=== PATIENT | female | born 2000 | race Caucasian/White ===

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

== ENCOUNTER 2018-06-21 15:35 | Emergency (ER) | payer OTHER ==
[2018-06-21 15:48] VITALS: BP 109/66
--- NOTE | 2018-06-21 16:15 | UC ---
Throat Pain/Nasal Zac HPI - HPI Summary HPI Summary: started with hoarseness 4 days ago, next day has ST. ST persists, no fever or cough - History of Current Complaint Chief Complaint: UCGeneralIllness Stated Complaint: SORE THROAT Time Seen by Provider: 06/21/18 16:02 Hx Obtained From: Patient Hx Last Menstrual Period: currently ?: No Onset/Duration: Gradual Onset Severity: Mild Pain Intensity: 0 Cough: None Associated Signs & Symptoms: Positive: Hoarseness - Allergies/Home Medications Allergies/Adverse Reactions: Allergies Allergy/AdvReac Type Severity Reaction Status Date / Time No Known Allergies Allergy Verified 06/21/18 15:48 Home Medications: Home Medications Ibuprofen TAB* [Advil TAB*] 800 mg PO ONCE PRN 06/21/18 [History Confirmed 06/21] PMH/Surg Hx/FS Hx/Imm Hx Previously Healthy: Yes Respiratory History: Asthma - Surgical History Surgical History: None - Family History Known Family History: Positive: Unknown - Social History Occupation: Student Lives: With Family Alcohol Use: Rare Substance Use Type: None Smoking Status (MU): Never Smoked Tobacco Review of Systems All Other Systems Reviewed And Are Negative: Yes Constitutional: Positive: Negative Skin: Positive: Negative. Negative: Rash ENT: Positive: Sore Throat, Sinus Congestion. Negative: Ear Ache Respiratory: Positive: Negative Cardiovascular: Positive: Negative Gastrointestinal: Positive: Negative Neurological: Positive: Negative Psychological: Positive: Negative Is Patient Immunocompromised?: No Physical Exam Triage Information Reviewed: Yes Appearance: Well-Appearing, No Pain Distress, Well-Nourished Vital Signs: Initial Vital Signs Temp 97.4 F 06/21/18 15:45 Pulse 98 06/21/18 15:45 Resp 16 06/21/18 15:45 BP 109/66 06/21/18 15:45 Pulse Ox 100 06/21/18 15:45 Vital Signs Reviewed: Yes Eyes: Positive: Conjunctiva Clear ENT: Positive: Nasal congestion, Hoarse voice Neck exam: Normal Neck: Positive: No Lymphadenopathy Respiratory Exam: Normal Cardiovascular Exam: Normal Musculoskeletal Exam: Normal Neurological Exam: Normal Psychological Exam: Normal Skin Exam: Normal Throat Pain/Nasal Course/Dx - Differential Dx/Diagnosis Differential Diagnosis/HQI/PQRI: Influenza, Otitis Media, Pharyngitis, Sinusitis , Tonsillitis Provider Diagnoses: upper respiratory Discharge - Sign-Out/Discharge Documenting (check all that apply): Patient Departure All imaging exams completed and their final reports reviewed: No Studies - Discharge Plan Condition: Good Disposition: HOME Patient Education Materials: Upper Respiratory Infection (ED) Referrals: No Primary Care Phys,NOPCP [Primary Care Provider] - Additional Instructions: drink plenty of fluids use ibuprofen 600mg every 6 hours as needed for pain and fever recheck if no better 2-3 days - Billing Disposition and Condition Condition: GOOD Disposition: Home - Attestation Statements Provider Attestation: I was available for consult. This patient was seen by the FER. The patient was not presented to, seen by, or examined by me. -Davis
== END 2018-06-21 16:35 | disposition home or self-care (01) ==
LOC: UCEAST 15:35
DX: R49.0 Dysphonia (principal); J02.9 Acute pharyngitis, unspecified; J45.909 Unspecified asthma, uncomplicated
CPT/HCPCS: 87651; 99211; G0463

== ENCOUNTER 2019-05-19 16:34 | Emergency (ER) | payer OTHER ==
[2019-05-19] MEDS ORDERED: Metoclopramide IV* 5 MG/ML 2 ML VIAL IV SLOW PU ONE (16:44)
[2019-05-19] MEDS ORDERED: Ondansetron INJ* 2 MG/ML VIAL IV ONE (16:44)
[2019-05-19] MEDS ORDERED: Ketorolac INJ* 30 MG/ML 1 ML VIAL IV ONE (16:44)
[2019-05-19] MEDS ORDERED: NS 0.9% 1000 ML** 1,000 ML IV ONE (16:44)
--- NOTE | 2019-05-19 16:51 | ED ---
Headache - HPI Summary HPI Summary: 18 year old F presenting to [facility] accompanied by female life skills trainer complains of headache rated 5/10 in severity with associated nausea/vomiting, visual changes , and numbness since hours ago. PMHx: migraines, last episode being months ago, for which she usually takes medications and naps with relief. States she took ibuprofen 800 mg at 14:00 today and tried napping. Was unable to nap, woke up with left hand numbness, left upper arm numbness, left facial numbness then nausea/vomiting. States that numbness has resolved. States she was vomiting on her way to the ED minutes ago. Symptoms aggravated by nothing. Symptoms alleviated by rest. Hx of similar presentations and aura w prior migraines. Surgical hx: wisdom teeth. FHx: migraine headaches. - History Of Current Complaint Chief Complaint: EDHeadache Stated Complaint: HEADACHE/VOMITING PER PT Time Seen by Provider: 05/19/19 16:44 Hx Obtained From: Patient Onset/Duration: Started hours ago, Still Present Currently Pain Is: Current Pain Scale(0-10)= - 5, Moderate Timing: Constant Aggravating Factor: Nothing Allevating Factors: Nothing Associated Signs And Symptoms: Other (Noted In Comments) - nausea/vomiting, visual changes, and numbness - Allergies/Home Medications Allergies/Adverse Reactions: Allergies Allergy/AdvReac Type Severity Reaction Status Date / Time No Known Allergies Allergy Verified 06/21/18 15:48 PMH/Surg Hx/FS Hx/Imm Hx Endocrine/Hematology History: Denies: Hx Diabetes, Hx Thyroid Disease Cardiovascular History: Denies: Hx Hypertension Respiratory History: Denies: Hx Asthma, Hx Chronic Obstructive Pulmonary Disease (COPD) GI History: Denies: Hx Ulcer Neurological History: Reports: Hx Headaches, Hx Migraine - Surgical History Surgery Procedure, Year, and Place: wisdom teeth Infectious Disease History: No Infectious Disease History: Denies: Hx Clostridium Difficile, Hx Hepatitis, Hx Human Immunodeficiency Virus (HIV), Hx of Known/Suspected MRSA, Hx Shingles, Hx Tuberculosis, Hx Known/ Suspected VRE, Hx Known/Suspected VRSA, History Other Infectious Disease, Traveled Outside the [place] in Last 30 Days - Family History Known Family History: Positive: Other - migraine headaches - Social History Alcohol Use: Rare Substance Use Type: Reports: None Smoking Status (MU): Never Smoked Tobacco Review of Systems Positive: Other - visual change Positive: Vomiting, Nausea Positive: Headache, Numbness All Other Systems Reviewed And Are Negative: Yes Physical Exam - Summary Physical Exam Summary: Constitutional: Well-developed, Well-nourished, Alert. (-) Distressed Skin: Warm, Dry HENT: Normocephalic; Atraumatic Eyes: Conjunctiva normal Neck: Musculoskeletal ROM normal neck. (-) JVD, (-) Stridor, (-) Nuchal rigidity Cardio: Rhythm regular, rate normal, Heart sounds normal; Intact distal pulses; Radial pulses are 2+ and symmetric. (-) Murmur Pulmonary/Chest wall: Effort normal. (-) Respiratory distress, (-) Wheezes, (-) Rales Abd: Soft, (-) tenderness, (-) Distension, (-) Guarding, (-) Rebound Musculoskeletal: (-) Edema Lymph: (-) Cervical adenopathy Neuro: Alert, Oriented x3 Psych: Mood and affect Normal Triage Information Reviewed: Yes Vital Signs On Initial Exam: Initial Vitals Temp Pulse Resp BP Pulse Ox 97.8 F 93 17 108/80 98 05/19/19 16:38 05/19/19 16:38 05/19/19 16:38 05/19/19 16:38 05/19/19 16:38 Vital Signs Reviewed: Yes Procedures - Sedation Patient Received Moderate/Deep Sedation with Procedure: No Diagnostics - Vital Signs Vital Signs Temp Pulse Resp BP Pulse Ox 05/19/19 16:38 97.8 F 93 17 108/80 98 - Laboratory Lab Statement: Any lab studies that have been ordered have been reviewed, and results considered in the medical decision making process. Re-Evaluation - Re-Evaluation First Eval Re-Evaluation Time: 18:05 Change: Improved Comment: feels much better, tolerating PO. will d/c home Headache Course/Dx - Course Course Of Treatment: 18-year-old female with a history of migraines with the headache. Patient states this is consistent with prior migraines, no red flag symptoms, no infectious symptoms. We'll try symptomatic control reassess - Diagnoses Provider Diagnoses: Migraine Discharge ED - Sign-Out/Discharge Documenting (check all that apply): Patient Departure - Discharge - Discharge Plan Condition: Stable Disposition: HOME Patient Education Materials: Migraine Headache (ED) Referrals: No Primary Care Phys,NOPCP [Primary Care Provider] - Additional Instructions: You were seen in the emergency room for headache. You can take Motrin or Tylenol at home. Please return for worsening headaches, vomiting, fevers or if you're concerned. It was a pleasure taking care of you today. - Billing Disposition and Condition Condition: STABLE Disposition: Home - Attestation Statements Document Initiated by Carmel: Yes Documenting Scribe: Ashely Camp Provider For Whom Carmel is Documenting (Include Credential): Yolie Zee MD Scribe Attestation: IAshely, scribed for Yolie Zee MD on 05/19/19 at 2145. Scribe Documentation Reviewed: Yes Provider Attestation: The documentation as recorded by the Ashely espinoza accurately reflects the service I personally performed and the decisions made by , Yolie Zee MD Status of Scribe Document: Viewed
[2019-05-19 18:08] VITALS: BP 95/64
== END 2019-05-19 18:22 | disposition home or self-care (01) ==
LOC: ED 16:34
DX: G43.909 Migraine, unspecified, not intractable, without status migrainosus (principal)
CPT/HCPCS: 96361; 96374; 96375; 99282; J2405; J2765